=== PATIENT | male | born 1950 | race Two or more races ===

== ENCOUNTER 2020-04-13 19:39 | Inpatient (IN) | payer MEDICARE, OTHER ==
[~2020-04-13] VITALS: Ht 180.3 cm; Wt 138.3 kg
--- NOTE | 2020-04-13 20:17 | NUR ---
CALLED LAB FOR COVID SWAB.
--- NOTE | 2020-04-13 20:17 | NUR ---
SEATER GRINDER AT BEDSIDE
[2020-04-13 20:29] LABS: BASOPHILS # (AUTO) 0.1 /CMM (0.0-0.2); BASOPHILS % (AUTO) 0.3 % (0.0-2.0); HEMATOCRIT 26 % (39-51); HEMOGLOBIN 7.9 g/dL (13.5-17.5); LYMPHOCYTES # (AUTO) 0.3 /CMM (0.8-4.8); LYMPHOCYTES % (AUTO) 1.4 % (20.0-44.0); MEAN CORPUSCULAR HGB CONC 30 g/dl (31.0-36.0); MEAN CORPUSCULAR VOLUME 66 fL (80-96); MONOCYTES # (AUTO) 0.5 /CMM (0.1-1.30); MONOCYTES % (AUTO) 2.2 % (2.0-12.0); NEUTROPHILS # (AUTO) 23.2 /CMM (1.8-8.9); NEUTROPHILS % (AUTO) 96.1 % (43.0-81.0); PLATELET COUNT (AUTO) 351 /CMM (150-450); RED BLOOD CELL COUNT(AUTO) 3.93 MIL/uL (4.5-6.0); WHITE BLOOD COUNT (AUTO) 24.2 K/uL (4.3-11.0)
--- NOTE | 2020-04-13 20:30 | NUR ---
CODI FROM HOME TO ER BED 6. AAOX4. NOT IN RESP DISTRESS. BROUGHT IN FOR WEAKNESS AND FLU LIKE SYMPTOMS. PER PT, HE HAS BEEN FEELING WEAK TODAY AND DIFFICULT TO MOVE AROUND HE REPORTS THAT HE SLIPPED OF HIS TOILET. PT DENIED HITTING HIS HEAD. NO KO. PT IS ALSO COMPLAINING OF COUGH. WAS AT THE BESIDE FOR EVAL. ORDERS RECEIVED, NOTED AND CARRIED OUT.
--- NOTE | 2020-04-13 20:32 | NUR ---
ULTRASOUND AT BEDSIDE
[2020-04-13 20:49] LABS: ALANINE AMINOTRANSFERASE 14 U/L (12-78); ALBUMIN 3.4 g/dL (3.4-5.0); ALKALINE PHOSPHATASE 69 U/L (46-116); ASPARTATE AMINOTRANSFERASE 42 U/L (15-37); BILIRUBIN,DIRECT 0.3 mg/dL (0.0-0.2); BILIRUBIN,TOTAL 1.9 mg/dL (0.2-1.0); CALCIUM, SERUM 9.6 mg/dL (8.5-10.1); CARBON DIOXIDE 22 mmol/L (21-32); CHLORIDE 97 mmol/L (98-107); CREATININE 2.1 mg/dL (0.6-1.3); GLUCOSE 258 mg/dL (74-106); POTASSIUM 3.9 mmol/L (3.5-5.1); SODIUM SERUM 135 mmol/L (136-145); TOTAL PROTEIN, SERUM 7.9 g/dL (6.4-8.2); UREA NITROGEN, BLOOD 21 mg/dL (7-18)
--- NOTE | 2020-04-13 20:55 | NUR ---
pt to ct on james
--- NOTE | 2020-04-13 20:57 | NUR ---
calcium gluconate cancelled by . potassium 3.9
[2020-04-13] MEDS ORDERED: VANCOMYCIN 2 GM in IV D5W 250 ML IV ONE (21:00)
[2020-04-13] MEDS ORDERED: Calcium Gluconate 1GM/10ML 4.65 MEQ in IV D5W 50 ML IV ONE ×4 (21:00)
[2020-04-13] MEDS ORDERED: MEROPENEM 1 G VIAL IV ONE (21:00)
[2020-04-13] MEDS ORDERED: MEROPENEM 1,000 MG in IV NS 0.9% 100 ML IV ONE (21:00)
[2020-04-13] MEDS ORDERED: VANCOMYCIN 1 GM VIAL ONE (21:01)
--- NOTE | 2020-04-13 21:04 | NUR ---
BROUGHT BACK FROM CT
--- NOTE | 2020-04-13 21:11 | NUR ---
another ultrasound at bedside
[2020-04-13 21:19] LABS: BAND % (MANUAL) 16 % (0.0-5.0); LYMPHOCYTES % (MANUAL) 1 % (16-48); MONOCYTES % (MANUAL) 1 % (0-11.0); NEUTROPHILS % (MANUAL) 82 (42-76)
--- NOTE | 2020-04-13 21:24 | NUR ---
CALLED [facility] FOR CT READ
--- NOTE | 2020-04-13 21:59 | NUR ---
urine collected and sent to lab
[2020-04-13] MEDS ORDERED: IV NS 0.9% 1,000 ML IV ONE (22:00)
--- NOTE | 2020-04-13 22:16 | NUR ---
BED ASSIGNMENT 114-1
--- NOTE | 2020-04-13 22:20 | NUR ---
report given to kelsey rodriguez for ivan
[2020-04-13] MEDS ORDERED: ONDANSETRON HCL/PF 4 MG/2 ML VIAL IVP PRN (22:30)
[2020-04-13] MEDS ORDERED: DEXTROSE 50%-WATER 50 ML DISP.SYRIN IV PRN (22:30)
[2020-04-13] MEDS ORDERED: MAGNESIUM HYDROXIDE 30 ML UDC PO PRN (22:30)
[2020-04-13] MEDS ORDERED: MAG HYDROX/AL HYDROX/SIMETH 30 ML UDC PO PRN (22:30)
[2020-04-13] MEDS ORDERED: ZOLPIDEM TARTRATE 5 MG TABLET PO PRN (22:30)
[2020-04-13] MEDS ORDERED: Z GUARD REMEDY 2 OZ OINT TP PRN (22:30)
--- NOTE | 2020-04-13 22:35 | NUR ---
pt transported to unit on gurney with emt and rn at beside w/ acls protocol. nad noted during transport.
[2020-04-13 22:52] LABS: BILIRUBIN,URINE SMALL (NEGATIVE); COLOR,URINE YELLOW (YELLOW); LEUKOCYTE ESTERASE ,URINE NEGATIVE (NEGATIVE); NITRITE, URINE NEGATIVE (NEGATIVE); PROTEIN,URINE 100 mg/dl (NEGATIVE); UGLUCOSE NEGATIVE (NEGATIVE); UROBILINOGEN,URINE 0.2 EU/dL (0.2)
[2020-04-13 22:58] LABS: BACTERIA,URINE Few /HPF (None Seen); HYALINE CASTS, URINE Moderate /LPF (None Seen); MUCUS,URINE Few /LPF (None Seen); SQUAMOUS EPITHELIAL CELL,UR Few /HPF (None Seen); URINE AMORPHOUS URATE Few /HPF (None Seen); WBC,URINE 0-2 /HPF (0-3)
[2020-04-13] MEDS ORDERED: VANCOMYCIN 2 GM in IV D5W 500 ML IV ONE (22:58)
[2020-04-13 23:10] VITALS: BP 121/73
--- NOTE | 2020-04-13 23:10 | NUR ---
CATERING SALES MANAGER ADMISSION NOTES, RECEIVED 70 YO MALE ADMITTED FROM ER VIA STRETCHER IN COMPANY OF 2 NURSES, UNDER CAMERON HERRON MD MEDICAL SERVICES, WITH ADMITTING DX CELLULITIS, A/O X3 ABLE TO VERBALIZE NEEDS AND CONCERNS, ATTACHED TO TELE MONITOR AND PATIENT NSR IN TELE MONITOR, WITH HR IN 80S, O2 90S AND TITRATE UP TO 4LPM VIA NC WITH 02 95%, VS UPON ADMISSION 121/73, 80, 24, 103.0, COOLING MEASURES PROVIDED, WILL ADM TYLENOL, PATIENT NOTED WITH REDNESS PERINEAL AREA, AND LLL CELLULITIS, RLL NON PITTING EDEMA, PATIENT STILL INFUSING NS FROM ER, WILL ADMINISTER MEDICATIONS ORDERED, BED LOCKED AND IN LOW POSITION, CALL LIGHT W/I REACH, ALL NEEDS PROVIDED, WILL CONTINUE TO MONITOR CLOSELY.
[2020-04-13] MEDS: ACETAMINOPHEN 325 MG TABLET PO PRN (23:23)
--- NOTE | 2020-04-13 23:30 | NUR ---
RN NOTE, VANCOMYCIN ADMINISTERED IN ER.
[2020-04-14] VITALS: BP 115/54
[2020-04-14] MEDS ORDERED: PIPERACILLIN /TAZOBACTAM 2.25 G VIAL IV ONE ×2 (00:04→05:18)
[2020-04-14] MEDS: ZOSYN IVPB 2.25 G in IV D5W 50ml IV SCH ×2 (00:28→05:24)
--- NOTE | 2020-04-14 03:20 | NUR ---
RN NOTES, PATIENT COMPLAINING OF TROUBLE BREATHING/SOB, O2 WNL ON NC 4LPM, AND NOTED CONGESTED, INFORMED CAMERON CURATOR [employer] HISTORY M[employer]UM, AND REPLIED WITH LASIX 20MG IV X1, NOTED AND CARRIED OUT, WILL ADMINISTER ORDERED.
[2020-04-14] MEDS ORDERED: FUROSEMIDE 40 MG/4 ML VIAL IV ONE (03:30)
[2020-04-14] MEDS: IV NS 0.9% 1,000 ML IV PRN (03:41)
[2020-04-14] MEDS: ACETAMINOPHEN 325 MG TABLET PO PRN ×3 (05:35→20:52)
[2020-04-14 05:54] LABS: BASOPHILS % (AUTO) 0.3 % (0.0-2.0); HEMATOCRIT 26 % (39-51); HEMOGLOBIN 7.9 g/dL (13.5-17.5); LYMPHOCYTES # (AUTO) 0.3 /CMM (0.8-4.8); LYMPHOCYTES % (AUTO) 1.4 % (20.0-44.0); MEAN CORPUSCULAR HGB CONC 30 g/dl (31.0-36.0); MEAN CORPUSCULAR VOLUME 66 fL (80-96); MONOCYTES # (AUTO) 0.5 /CMM (0.1-1.30); MONOCYTES % (AUTO) 2.7 % (2.0-12.0); NEUTROPHILS % (AUTO) 95.6 % (43.0-81.0); PLATELET COUNT (AUTO) 332 /CMM (150-450); WHITE BLOOD COUNT (AUTO) 18.8 K/uL (4.3-11.0)
[2020-04-14 05:58] LABS: CALCIUM, SERUM 8.9 mg/dL (8.5-10.1); CREATININE 1.6 mg/dL (0.6-1.3); MAGNESIUM 1.6 mg/dL (1.8-2.4); PHOSPHORUS 3.5 mg/dL (2.5-4.9); POTASSIUM 3.7 mmol/L (3.5-5.1)
--- NOTE | 2020-04-14 06:50 | NUR ---
STITCHER TAPE CONTROLLED MACHINE NOTES, PATIENT IN BED, SLEEPING AT THIS TIME MORE COMFORTABLE AFTER LASIX ADMINISTRATION, RESTING WITH NO DISTRESS NOTED, A/O X3 ABLE TO VERBALIZE NEEDS AND CONCERNS, CONTINUE NSR IN TELE MONITOR WITH HR 90S, O2 4LPM VIA NC WITH 02 >94%, TYLENOL ADMINISTERED 2X DURING MY SHIFT FOR HIGH BODY TEMP, LAST TEMP 99.9 AT THIS TIME, PIV LINE AND RIGHT HAND PATENT AND INTACT ON NS 0.9% AT 75ML/HR, BED LOCKED AND IN LOW POSITION, CALL LIGHT W/I REACH, ALL NEEDS PROVIDED, WILL ENDORSE CONTINUITY OF CARE TO ONCOMING NURSE.
--- NOTE | 2020-04-14 07:10 | NUR ---
RN OPENING NOTE PATIENT RECEIVED IN BED RESTING IN SEMI-FOWLERS POSITION. PATIENT IS ON O2 THERAPY VIA NC AT 4 LPM SATTING ABOVE 95% WITH NO COMPLAINTS OF SOB OR RESPIRATORY DISTRESS NOTED. PATIENT IS TOLERATING O2 THERAPY WELL. DENIES PAIN AT THE MOMENT. PATIENT LEFT HAND 20 G PATENT AND INTACT CURRENTLY RUNNING NS 0.9% AT 75 ML/HR. SAFETY PRECAUTIONS IMPLEMENTED, BED LOCKED IN LOWEST POSITION, SIDE RAILS UP X2, CALL LIGHT WITHIN REACH. WILL CONTINUE TO MONITOR AND PROVIDE CARE THROUGHOUT SHIFT.
[2020-04-14] MEDS: BLOOD SUGAR DIAGNOSTIC 1 EACH STRIP VI SCH ×4 (08:28→21:19)
[2020-04-14] MEDS: PIPERACILLIN /TAZOBACTAM 3.375 G in IV D5W 100 ML IV SCH ×2 (10:04→17:26)
--- NOTE | 2020-04-14 10:55 | NUR ---
WOUND CARE CONSULT: PT PRESENTS WITH REDNESS AND EDEMA TO BILATERAL LOWER LEGS WITH SEVERE SWELLING TO LEFT LOWER LEG, PRESENT ON ADMISSION. RECOMMEND DPM CONSULT. DR BOURGEOIS NOTIFIED OF CONSULT REQUEST. PT REFUSED TO TURN FOR FULL SKIN ASSESSMENT. PT COUGHING AND STATES HAS CHRONIC COUGH. PT IS INCONTINENT OF URINE AT TIMES AND HAS DIFFICULTY USING URINAL. SOME REDNESS NOTED TO RT GROIN FOLD. RECOMMENDATIONS MADE FOR SKIN PROTECTION. DISCUSSED WITH NURSING STAFF. IN AGREEMENT WITH PLAN OF CARE.
[2020-04-14] MEDS ORDERED: Magnesium 1GM/D5W 100ML PREMIX 100 ML IV SCH (12:30)
[2020-04-14 12:51] LABS: CREATININE, URINE 89.3 MG/DL (30.0-125.0); URINE TOTAL PROTEIN 43.5 mg/dL (0-11.9)
[2020-04-14 13:17] LABS: BILIRUBIN,URINE NEGATIVE (NEGATIVE); COLOR,URINE YELLOW (YELLOW); LEUKOCYTE ESTERASE ,URINE NEGATIVE (NEGATIVE); NITRITE, URINE NEGATIVE (NEGATIVE); PROTEIN,URINE TRACE mg/dl (NEGATIVE); UGLUCOSE NEGATIVE (NEGATIVE); UROBILINOGEN,URINE 0.2 EU/dL (0.2)
[2020-04-14 13:30] LABS: BACTERIA,URINE Rare /HPF (None Seen); SQUAMOUS EPITHELIAL CELL,UR Rare /HPF (None Seen); WBC,URINE 0-2 /HPF (0-3)
[2020-04-14 14:21] LABS: EOSINOPHIL,URINE None Seen
[2020-04-14] MEDS ORDERED: VITAMINS A AND D 56.7 GM TUBE TP PRN (14:30)
[2020-04-14] MEDS: CLOTRIMAZOLE 1% 15 GM TUBE TP SCH (17:23)
--- NOTE | 2020-04-14 18:57 | NUR ---
RN CLOSING NOTE PATIENT IN BED RESTING IN SEMI-FOWLERS POSITION. PATIENT IS ON O2 THERAPY VIA NC AT 4 LPM SATTING ABOVE 95% WITH NO COMPLAINTS OF SOB OR RESPIRATORY DISTRESS NOTED. PATIENT IS TOLERATING O2 THERAPY WELL. DENIES PAIN AT THE MOMENT. PATIENT LEFT HAND 20 G PATENT AND INTACT CURRENTLY RUNNING NS 0.9% AT 75 ML/HR. SAFETY PRECAUTIONS IMPLEMENTED, BED LOCKED IN LOWEST POSITION, SIDE RAILS UP X2, CALL LIGHT WITHIN REACH. WILL ENDORSE CONTINUATION OF CARE TO UPCOMING SHIFT.
--- NOTE | 2020-04-14 19:30 | NUR ---
BARREL BURNER OPENING NOTE PATIENT IN BED , A/O X3, ABLE TO VERBALIZE NEEDS AN CONCERNS, ON O2 THERAPY VIA NC AT 4 L VIA NC, WIT O2 >95%, NO SOB/RESPIRATORY DISTRESS NOTED, NSR IN TELE MONITOR, LEFT HAND 20 G PATENT AND INTACT, INFUSING NS 0.9% AT 75 ML/HR, ALL SAFETY PRECAUTIONS IMPLEMENTED, BED LOCKED IN LOWEST POSITION, SIDE RAILS UP X2, CALL LIGHT WITHIN REACH, WILL CONTINUE TO MONITOR CLOSELY.
[2020-04-14 20:00] VITALS: BP 149/70
[2020-04-14] MEDS: VANCOMYCIN 1.5 GM in IV D5W 500 ML IV SCH (21:02)
[2020-04-14] MEDS: *INSULIN REGULAR(HUMULIN R)HUM 100 UNIT/ML VIAL SQ PRN (21:21)
[2020-04-15] MEDS: PIPERACILLIN /TAZOBACTAM 3.375 G in IV D5W 100 ML IV SCH ×3 (02:52→17:56)
[2020-04-15 04:00] VITALS: BP 131/63
[2020-04-15 06:32] LABS: BASOPHILS % (AUTO) 0.2 % (0.0-2.0); HEMATOCRIT 24 % (39-51); HEMOGLOBIN 7.2 g/dL (13.5-17.5); LYMPHOCYTES # (AUTO) 0.5 /CMM (0.8-4.8); LYMPHOCYTES % (AUTO) 3.9 % (20.0-44.0); MEAN CORPUSCULAR HGB CONC 30 g/dl (31.0-36.0); MEAN CORPUSCULAR VOLUME 65 fL (80-96); MONOCYTES # (AUTO) 0.6 /CMM (0.1-1.30); MONOCYTES % (AUTO) 4.6 % (2.0-12.0); NEUTROPHILS # (AUTO) 12.6 /CMM (1.8-8.9); NEUTROPHILS % (AUTO) 91.3 % (43.0-81.0); PLATELET COUNT (AUTO) 274 /CMM (150-450); RED BLOOD CELL COUNT(AUTO) 3.65 MIL/uL (4.5-6.0); WHITE BLOOD COUNT (AUTO) 13.8 K/uL (4.3-11.0)
[2020-04-15 06:40] LABS: ALBUMIN 2.5 g/dL (3.4-5.0); BILIRUBIN,TOTAL 1.3 mg/dL (0.2-1.0); CALCIUM, SERUM 8.4 mg/dL (8.5-10.1); CREATININE 1.3 mg/dL (0.6-1.3); POTASSIUM 3.3 mmol/L (3.5-5.1); TOTAL PROTEIN, SERUM 6.9 g/dL (6.4-8.2)
--- NOTE | 2020-04-15 06:51 | NUR ---
SCREEDMAN CLOSING NOTE PATIENT IN BED, AWAKE A/O X3, ABLE TO VERBALIZE NEEDS AN CONCERNS, ON O2 THERAPY VIA NC AT 4 L VIA NC, WITH O2 >95%, NO SOB/RESPIRATORY DISTRESS NOTED, NO SIGNIFICANT CHANGE IN CONDITION DURING THE NIGHT, ALL SAFETY PRECAUTIONS IMPLEMENTED, BED LOCKED IN LOWEST POSITION, SIDE RAILS UP X2, CALL LIGHT WITHIN REACH, WILL ENDORSE CONTINUITY OF CARE TO ONCOMING NURSE.
[2020-04-15 08:00] VITALS: BP 133/50
--- NOTE | 2020-04-15 08:00 | NUR ---
PT RECEIVED ON 4L NASAL CANNULA, BUT OBSERVED WITH CANNULA AROUND NECK; 02 SAT READING 92% ON ROOM AIR, NO DISTRESS. CANNULA REPLACED AND DECREASED TO 3L. PT ALERT AND ORIENTED X 4. PATIENT HAS NS RUNNING IN RIGHT HAND 22G, NO SIGNS OF INFECTION OR INFILTRATION. JARAMILLO CATH DRAINING YELLOW URINE, ALL SAFETY MEASURES IN PLACE. WILL CONTINUE TO MONITOR
[2020-04-15] MEDS: BLOOD SUGAR DIAGNOSTIC 1 EACH STRIP VI SCH ×4 (08:03→22:06)
[2020-04-15] MEDS: CLOTRIMAZOLE 1% 15 GM TUBE TP SCH ×2 (08:04→17:38)
[2020-04-15] MEDS: *INSULIN REGULAR(HUMULIN R)HUM 100 UNIT/ML VIAL SQ PRN ×2 (08:05→23:38)
[2020-04-15 08:58] LABS: LYMPHOCYTES % (MANUAL) 3 % (16-48); MONOCYTES % (MANUAL) 4 % (0-11.0); NEUTROPHILS % (MANUAL) 93 (42-76)
[2020-04-15] MEDS ORDERED: POTASSIUM CHLORIDE 20 MEQ TAB.PRT.SR PO ONE (09:45)
[2020-04-15] MEDS ORDERED: TAMS-12 PO (10:28)
[2020-04-15] MEDS ORDERED: AMLO10TA4 PO (10:28)
[2020-04-15] MEDS ORDERED: LOSA50TA3 PO (10:28)
[2020-04-15] MEDS ORDERED: OMEP20TA20 PO (10:28)
[2020-04-15] MEDS ORDERED: METO50TA16 PO (10:28)
[2020-04-15] MEDS ORDERED: FURO-144 PO (10:28)
[2020-04-15] MEDS ORDERED: METF-440 PO (10:28)
[2020-04-15] MEDS ORDERED: SIMV40TA2 PO (10:28)
[2020-04-15 12:00] VITALS: BP 143/67
[2020-04-15] MEDS: INSULIN REGULAR, HUMAN 100 UNIT/ML 3 ML VIAL SQ PRN ×2 (12:11→17:42)
[2020-04-15 16:00] VITALS: BP 137/64
--- NOTE | 2020-04-15 19:00 | NUR ---
PATIENT REMAINS IN BED, NOW ON ROOM AIR O2 SAT 91-92%, DUE TO NASAL CANNULA DISPLACING. ENDORSED TO ONCOMING RN TO RECHECK O2 SATS AND NEED FOR SUPPLEMENTAL O2. PATIENT IV SITES REMAIN INTACT AND FLUSHED WELL, NO SIGNS OF INFECTION. PATIENT RUNNING NS AT 75 ML/HR. PATIENT JARAMILLO IN PLACE DRAINING YELLOW URINE 500 ML. NO BM THIS SHIFT. SCD APPLIED TO RIGHT LOWER LEG, ANTICOAGULANTS TO BE HELD DUE TO DECREASING HGB PER DO KERZUMA. ALL SAFETY MEASURES IN PLACE. REPORT GIVEN TO ONCOMING RN FOR RUBI
[2020-04-15 20:00] VITALS: BP 144/64
--- NOTE | 2020-04-15 20:00 | NUR ---
RN NOTE RECEIVED PT IN BED A,A,O X4, PT IS ON 3L O2 VIA NC SATING 94%, PT HAS UNLABORED BREATHING, SAFETY MEASURES IN PLACE
[2020-04-15] MEDS: VANCOMYCIN 1.5 GM in IV D5W 500 ML IV SCH (22:06)
[2020-04-16] VITALS (9 sets, daily range): BP systolic 111–152; BP diastolic 59–79
[2020-04-16] MEDS: IV NS 0.9% 1,000 ML IV PRN ×2 (00:33→18:24)
[2020-04-16] MEDS: PIPERACILLIN /TAZOBACTAM 3.375 G in IV D5W 100 ML IV SCH ×3 (01:57→18:25)
[2020-04-16 06:41] LABS: BASOPHILS % (AUTO) 0.4 % (0.0-2.0); EOSINOPHILS % (AUTO) 1.1 % (0.0-6.0); HEMATOCRIT 23 % (39-51); LYMPHOCYTES # (AUTO) 0.9 /CMM (0.8-4.8); LYMPHOCYTES % (AUTO) 8.1 % (20.0-44.0); MEAN CORPUSCULAR HGB CONC 30 g/dl (31.0-36.0); MEAN CORPUSCULAR VOLUME 64 fL (80-96); MONOCYTES % (AUTO) 8.8 % (2.0-12.0); NEUTROPHILS # (AUTO) 9.2 /CMM (1.8-8.9); NEUTROPHILS % (AUTO) 81.6 % (43.0-81.0); PLATELET COUNT (AUTO) 282 /CMM (150-450); RED BLOOD CELL COUNT(AUTO) 3.49 MIL/uL (4.5-6.0); WHITE BLOOD COUNT (AUTO) 11.3 K/uL (4.3-11.0)
[2020-04-16 06:51] LABS: HEMOGLOBIN 6.8 g/dL (13.5-17.5)
[2020-04-16 06:52] LABS: CALCIUM, SERUM 8.1 mg/dL (8.5-10.1); CREATININE 1.1 mg/dL (0.6-1.3); MAGNESIUM 2.5 mg/dL (1.8-2.4); POTASSIUM 3.4 mmol/L (3.5-5.1)
--- NOTE | 2020-04-16 06:53 | NUR ---
RECEIVED CRITICAL LAB HGB 6.8, INFORMED ABDIAS MCKEON.
--- NOTE | 2020-04-16 07:25 | NUR ---
RN NOTE PT REMAINED STABLE DURING MY SHIFT REPORT GIVEN TO INCOMING NURSE WITH PLAN OF CARE SHIFT FOR RUBI.
--- NOTE | 2020-04-16 07:30 | NUR ---
FANCY WIRE DRAWER OPENING NOTES Patient is alert and oriented with no s/s of respiratory depression. No c/o pain or disocmfort. On 3 liters 02 via n/c with 02 sat of 97%. Patient teaching done regarding safety and fall precaution. Patient noted with 22 gauze to right hand with no s/s of infection and patent. Rodriguez cath intact and hanging to gravity with clear yellow urine. Head of the bed kept elevated. Will continue to monitor. call light with in reach.
[2020-04-16] MEDS: INSULIN REGULAR, HUMAN 100 UNIT/ML 3 ML VIAL SQ PRN ×2 (07:54→18:05)
[2020-04-16] MEDS: BLOOD SUGAR DIAGNOSTIC 1 EACH STRIP VI SCH ×4 (07:55→21:24)
[2020-04-16 08:07] LABS: PTH, INTACT 100 pg/mL (15-65)
[2020-04-16] MEDS: CLOTRIMAZOLE 1% 15 GM TUBE TP SCH ×2 (08:59→16:18)
[2020-04-16 09:37] LABS: BAND % (MANUAL) 1 % (0.0-5.0); EOSINOPHILS % (MANUAL) 1 % (0-4); LYMPHOCYTES % (MANUAL) 6 % (16-48); MONOCYTES % (MANUAL) 4 % (0-11.0); NEUTROPHILS % (MANUAL) 88 (42-76)
[2020-04-16] MEDS ORDERED: POTASSIUM CHLORIDE 20 MEQ TAB.PRT.SR PO ONE (10:00)
[2020-04-16] MEDS ORDERED: NEUTRA PHOS 1 POWD.PACKET PO ONE (11:00)
[2020-04-16 11:07] LABS: *SPE A/G RATIO 0.6 (0.7-1.7); *SPE ALBUMIN 2.4 g/dL (2.9-4.4); *SPE ALPHA-1-GLOBULIN 0.5 g/dL (0.0-0.4); *SPE ALPHA-2-GLOBULIN 1.2 g/dL (0.4-1.0); *SPE GLOBULIN, TOTAL 3.7 g/dL (2.2-3.9); *SPE M-SPIKE Not Observed g/dL (Not Observed); *SPEGAMMA GLOBULIN 1.1 g/dL (0.4-1.8)
--- NOTE | 2020-04-16 14:00 | NUR ---
Patient was given 3 units of regular insulin ac lunch for sugar of 181 mg/dl
[2020-04-16] MEDS: HYDROCODONE/APAP 5/325MG TABLET PO PRN (14:26)
[2020-04-16] MEDS: VANCOMYCIN 1.5 GM in IV D5W 500 ML IV SCH (16:18)
--- NOTE | 2020-04-16 18:51 | NUR ---
ASSISTED LIVING HOUSEKEEPER CLOSING NOTES Patient is alert and oriented with no s/s of respiratory depression. No c/o pain or discomfort. On 3 liters 02 via n/c with 02 sat of 98%. Patient noted with 22 gauze to right hand with no s/s of infection and patent.Midline inserted during shift 18 gauze to right ac. Patent and no s/s of bleeding. Patient noted with non productive cough, lung sounds cta. Informed MD and received order for Robitussin dm 5 ml po q4h prn for cough. Rodriguez cath intact and hanging to gravity with clear yellow urine, noted with 800 cc of urine during shift. Head of the bed kept elevated. Will endorse to next shift for RUBI. call light with in reach.
[2020-04-16] MEDS: GUAIFENESIN/D-METHORPHAN HB 5 ML UDC PO PRN ×2 (19:09→23:16)
--- NOTE | 2020-04-16 19:24 | NUR ---
RN NOTE RECEIVED PT ALERT AND ORIENTED X 3 IN BED IN HIGH ZABALA'S POSITION. PT ON 3L OF O2. NO SIGNS OF DISTRESS. DENIES PAIN OR DISCOMFORT AT THIS TIME. RIGHT RIGHT HAND 22G IV AND RIGHT AC MID LINE PATENT AND INTACT WITHOUT COMPLICATIONS NOTED AT SITES. WITH ZOSYN RUNNING ORDERED AND NS @ 75ML/HOUR RUNNING ORDERED, PLAN OF CARE DISCUSSED, PT VERBALIZED UNDERSTANDING. PT IS PENDING 1PRBC INFUSION. CONSENT NOTED TO BE SIGNED IN CHART, PENDING COLLECTION OF STOOL FOR OCCULT BLOOD. SAFETY MEASURES IN PLACE PER PROTOCOL, BED LOCKED AND IN LOW POSITION, SIDE RAILS UP X 2, CALL LIGHT WITHIN REACH, WILL MONITOR PATIENT AND CARRY OUT ACTIVE MD ORDERS.
[2020-04-16] MEDS: *INSULIN REGULAR(HUMULIN R)HUM 100 UNIT/ML VIAL SQ PRN (21:11)
--- NOTE | 2020-04-16 23:26 | NUR ---
RN NOTE BLOOD TRANSFUSION STARTED, WILL MONITOR PATIENT.
[2020-04-17] VITALS (10 sets, daily range): BP systolic 114–163; BP diastolic 64–88
[2020-04-17] MEDS: HYDROCODONE/APAP 5/325MG TABLET PO PRN ×3 (00:10→23:42)
--- NOTE | 2020-04-17 02:00 | NUR ---
RN NOTE PT OFFERED BED BATH AND LINEN CHANGE BUT PT REFUSED STATING THAT LAST TIME IT MADE HIM FEEL "TIRED AND FATIGUED." REPOSITIONED PT FOR COMFORT. NO FURTHER NEEDS AT THIS TIME.
--- NOTE | 2020-04-17 02:26 | NUR ---
RN NOTE BLOOD TRANSFUSION COMPLETED, NO ADVERSE REACTIONS NOTED, VITAL SIGNS STABLE, PT DENIES DISCOMFORT OR SHORTNESS OF BREATH, WILL CONTINUE TO MONITOR PATIENT
[2020-04-17] MEDS: PIPERACILLIN /TAZOBACTAM 3.375 G in IV D5W 100 ML IV SCH ×3 (02:31→17:50)
[2020-04-17 06:21] LABS: BASOPHILS # (AUTO) 0.1 /CMM (0.0-0.2); EOSINOPHILS % (AUTO) 4.1 % (0.0-6.0); HEMATOCRIT 27 % (39-51); HEMOGLOBIN 8.1 g/dL (13.5-17.5); LYMPHOCYTES # (AUTO) 1.1 /CMM (0.8-4.8); LYMPHOCYTES % (AUTO) 9.7 % (20.0-44.0); MEAN CORPUSCULAR HGB CONC 30 g/dl (31.0-36.0); MEAN CORPUSCULAR VOLUME 67 fL (80-96); MONOCYTES # (AUTO) 1.1 /CMM (0.1-1.30); MONOCYTES % (AUTO) 9.6 % (2.0-12.0); NEUTROPHILS % (AUTO) 75.6 % (43.0-81.0); PLATELET COUNT (AUTO) 309 /CMM (150-450); RED BLOOD CELL COUNT(AUTO) 3.97 MIL/uL (4.5-6.0); WHITE BLOOD COUNT (AUTO) 11.9 K/uL (4.3-11.0)
--- NOTE | 2020-04-17 06:31 | NUR ---
RN NOTE NO ACUTE CHANGES OBSERVED OVERNIGHT. PT REMAINS ALERT AND ORIENTED X 3 SITTING AT THE EDGE OF THE BED. PT ON 3L OF O2. NO SIGNS OF DISTRESS. DENIES PAIN OR DISCOMFORT AT THIS TIME. RIGHT RIGHT HAND 22G IV AND RIGHT AC MID LINE PATENT AND INTACT. FLUSHED WITHOUT COMPLICATIONS NOTED AT SITES. WITH NS @ 75ML/HOUR RUNNING ORDERED, JARAMILLO CATHETER PATENT AND IN PLACE DRAINING URINE VIA GRAVITY. PT IS S/P BLOOD TRANSFUSION WITHOUT ADVERSE REACTIONS NOTED, PENDING COLLECTION OF STOOL FOR OCCULT BLOOD. SAFETY MEASURES IN PLACE PER PROTOCOL, BED LOCKED AND IN LOW POSITION, SIDE RAILS UP X 2, CALL LIGHT WITHIN REACH, WILL ENDORSE TO MORNING RN FOR URBI.
[2020-04-17 06:45] LABS: CALCIUM, SERUM 8.5 mg/dL (8.5-10.1); MAGNESIUM 2.3 mg/dL (1.8-2.4); PHOSPHORUS 2.1 mg/dL (2.5-4.9); POTASSIUM 3.6 mmol/L (3.5-5.1)
[2020-04-17] MEDS: BLOOD SUGAR DIAGNOSTIC 1 EACH STRIP VI SCH ×4 (07:47→21:59)
[2020-04-17] MEDS: INSULIN REGULAR, HUMAN 100 UNIT/ML 3 ML VIAL SQ PRN ×3 (07:49→17:44)
[2020-04-17 09:23] LABS: EOSINOPHILS % (MANUAL) 3 % (0-4); LYMPHOCYTES % (MANUAL) 10 % (16-48); MONOCYTES % (MANUAL) 11 % (0-11.0); NEUTROPHILS % (MANUAL) 76 (42-76)
[2020-04-17] MEDS: VANCOMYCIN 1.5 GM in IV D5W 500 ML IV SCH (09:44)
[2020-04-17] MEDS: CLOTRIMAZOLE 1% 15 GM TUBE TP SCH ×2 (09:58→16:47)
--- NOTE | 2020-04-17 10:45 | NUR ---
m/s transit mechanic: notes p.t. tx done at bedside. see p.t. notes.
--- NOTE | 2020-04-17 11:49 | NUR ---
m/s monotype setter: notes c/o 08/29 leg/foot pain, medicated with norco 1 tab po as ordered. instructed to call for assistance. will continue to monitor.
[2020-04-17] MEDS ORDERED: K PHOS NEUTRAL 250 MG TABLET PO ONE (12:00)
[2020-04-17] MEDS: IV NS 0.9% 1,000 ML IV PRN (12:08)
--- NOTE | 2020-04-17 14:10 | NUR ---
m/s geriatrics physician: md visit seen by dr. fairchild with orders. orders acknowledged.
--- NOTE | 2020-04-17 19:00 | NUR ---
RN NOTE RECEIVED PATIENT IN BED, ON SEMI ZABALA'S, AO X3-4, IN NO S/SX OF ACUTE DISTRESS AT THIS TIME. PATIENT'S BREATHING IS EVEN AND UNLABORED. PATIENT IS ON 3 L OF OXYGEN VIA NC, TOLERATING WELL, SATURATION AT 96%, HR IS 71. NOTED IV SITE AT R HAND 22G, AND RAC MIDLINE, PATENT AND FLUSHING WELL, NO S/S OF INFECTION. JARAMILLO CATH CONNECTED TO URINE BAG IN PLACE, DRAINING TO A CLEAR, YELLOW OUTPUT. SAFETY MEASURES IMPLEMENTED. PATIENT BED ALARM IS ON. HEAD OF BED ELEVATED. BED IS LOCKED, IN LOWEST POSITION AND SIDE RAILS UP. CALL LIGHT WITHIN REACH OF THE PATIENT. WILL CONTINUE TO MONITOR AND REASSESS FOR ANY CHANGES.
--- NOTE | 2020-04-17 19:20 | NUR ---
m/s foreign food cook specialty: notes report given to wyatt (rn) for continuity of care.
[2020-04-17] MEDS: *INSULIN REGULAR(HUMULIN R)HUM 100 UNIT/ML VIAL SQ PRN (22:02)
[2020-04-17] MEDS: GUAIFENESIN/D-METHORPHAN HB 5 ML UDC PO PRN (22:37)
[2020-04-18] VITALS: BP 163/70
[2020-04-18] MEDS: PIPERACILLIN /TAZOBACTAM 3.375 G in IV D5W 100 ML IV SCH ×4 (01:04→18:37)
[2020-04-18] MEDS: IV NS 0.9% 1,000 ML IV PRN (01:50)
[2020-04-18] MEDS: VANCOMYCIN 1.5 GM in IV D5W 500 ML IV SCH ×2 (03:30→21:50)
[2020-04-18] MEDS: HYDROCODONE/APAP 5/325MG TABLET PO PRN ×2 (03:59→14:32)
[2020-04-18 04:00] VITALS: BP 162/69
[2020-04-18 05:57] LABS: BASOPHILS # (AUTO) 0.1 /CMM (0.0-0.2); BASOPHILS % (AUTO) 0.8 % (0.0-2.0); EOSINOPHILS % (AUTO) 4.8 % (0.0-6.0); HEMATOCRIT 25 % (39-51); HEMOGLOBIN 7.5 g/dL (13.5-17.5); LYMPHOCYTES # (AUTO) 1.5 /CMM (0.8-4.8); MEAN CORPUSCULAR HGB CONC 30 g/dl (31.0-36.0); MEAN CORPUSCULAR VOLUME 67 fL (80-96); MONOCYTES # (AUTO) 1.3 /CMM (0.1-1.30); MONOCYTES % (AUTO) 10.4 % (2.0-12.0); PLATELET COUNT (AUTO) 340 /CMM (150-450); RED BLOOD CELL COUNT(AUTO) 3.69 MIL/uL (4.5-6.0); WHITE BLOOD COUNT (AUTO) 12.5 K/uL (4.3-11.0)
[2020-04-18 06:50] LABS: CALCIUM, SERUM 8.3 mg/dL (8.5-10.1); MAGNESIUM 2.4 mg/dL (1.8-2.4); PHOSPHORUS 2.1 mg/dL (2.5-4.9); POTASSIUM 3.5 mmol/L (3.5-5.1)
--- NOTE | 2020-04-18 07:10 | NUR ---
RN OPENING NOTES RECEIVED PT IN BED, A/O X3-4. ON 3L O2 VIA NC, SATURATION AT 91%. NO SON OR ANY SIGNS OF RESPIRATORY DISTRESS AT THIS TIME. IV LINES AT R HAND #22, AND RAC MIDLINE BOTH INTACT, PATENT AND FLUSHED. JARAMILLO CATH CONNECTED TO URINE BAG IN PLACE, DRAINING TO A CLEAR YELLOW OUTPUT. SAFETY MEASURES IMPLEMENTED. CALL LIGHT WITHIN REACH. BED LOCKED AND IN LOWEST POSITION WITH SIDE RAILS UP X2. BED ALARM ON. HOB ELEVATED. WILL CONTINUE TO MONITOR.
[2020-04-18] MEDS: BLOOD SUGAR DIAGNOSTIC 1 EACH STRIP VI SCH ×4 (07:30→21:27)
[2020-04-18 07:43] LABS: BAND % (MANUAL) 1 % (0.0-5.0); EOSINOPHILS % (MANUAL) 8 % (0-4); LYMPHOCYTES % (MANUAL) 11 % (16-48); MONOCYTES % (MANUAL) 5 % (0-11.0); MYELOCYTES % 2 % (0-0); NEUTROPHILS % (MANUAL) 73 (42-76)
[2020-04-18 08:00] VITALS: BP 166/74
[2020-04-18] MEDS: CLOTRIMAZOLE 1% 15 GM TUBE TP SCH ×2 (09:14→16:34)
[2020-04-18] MEDS: INSULIN REGULAR, HUMAN 100 UNIT/ML 3 ML VIAL SQ PRN ×3 (09:17→18:48)
[2020-04-18] MEDS: ACETAMINOPHEN 325 MG TABLET PO PRN (09:25)
[2020-04-18] MEDS ORDERED: K PHOS NEUTRAL 250 MG TABLET PO ONE (15:30)
[2020-04-18 16:00] VITALS: BP 157/60
[2020-04-18] MEDS ORDERED: LOSARTAN POTASSIUM 50 MG TABLET PO SCH (17:00)
[2020-04-18] MEDS ORDERED: FUROSEMIDE 40 MG TABLET PO SCH (17:00)
[2020-04-18] MEDS ORDERED: METOPROLOL TARTRATE 50 MG TABLET PO SCH (17:00)
[2020-04-18] MEDS ORDERED: PANTOPRAZOLE 40 MG TABLET.DR PO SCH (17:00)
[2020-04-18] MEDS ORDERED: METFORMIN 500 MG TABLET PO SCH (17:00)
--- NOTE | 2020-04-18 19:14 | NUR ---
RN CLOSING NOTES PT FOR DC. REPORT GIVEN TO CL[facility] GILL OF [facility]. DISCHARGE INSTRUCTIONS GIVEN TO PT. AWAITS [employer]. WILL ENDORSE TO NIGHT NURSE FOR RUBI
--- NOTE | 2020-04-18 19:20 | NUR ---
PT RECEIVED IN BED. AOX4, DENIES PAIN AND DISCOMFORT. NO S/S OF ACUTE DISTRESS. ENCOURAGED TO CALL FOR ASSIST. CALL LIGHT WITHIN REACH
[2020-04-18 20:00] VITALS: BP 112/70
--- NOTE | 2020-04-18 20:15 | NUR ---
RN NOTES FOLLOW UP CALL MADE TO CM REGARDING TRANSPORTATION; CALLED [facility] ; WILL CALL US BACK [phone] ROSA, FROM [facility] CALLED BACK. AMBULANCE SERVICES EXECUTIVE WILL BE AROUND 2300. PRIMARY RNMAYELA MADE AWARE.
[2020-04-18] MEDS: *INSULIN REGULAR(HUMULIN R)HUM 100 UNIT/ML VIAL SQ PRN (21:35)
[2020-04-18] MEDS ORDERED: SIMVASTATIN 20 MG TABLET PO SCH (22:00)
[2020-04-18] MEDS ORDERED: TAMSULOSIN 0.4 MG CAP.SR.24H PO SCH (22:00)
--- NOTE | 2020-04-18 23:22 | NUR ---
RN NOTES [id number] CALLED [facility] TO LET THEM KNOW PATIENT IS ON HIS WAY
--- NOTE | 2020-04-18 23:26 | NUR ---
INITIAL ASSESSMENT UNCHANGED PT AOX4, ABLE TO [place], RESPIRATIONS EVEN AND UNLABORED. NO C/O SOB OR DYSPNEA. NO S/S OF ACUTE DISTRESS. DENIES PAIN AND DISCOMFORT. SAFETY MAINTAINED. PERSONAL BELONGINGS SHEET SIGNED. PT STABLE AT THIS TIME. PT D/LEON TO [facility] ACCOM[facility]AN[facility] BY [facility].
[2020-04-19] MEDS ORDERED: AMLODIPINE BESYLATE 10 MG TABLET PO SCH (09:00)
== END 2020-04-18 23:22 | DRG 871 ==
LOC: ER 19:41 → TELE1 22:18 → MEDSG1 04-14 08:26
PROVIDERS: ADMIT Internal Medicine; ATTEND Student in an Organized Health Care Education/Training Program
PROC: 05H933Z Insertion of Infusion Device into Right Brachial Vein, Percutaneous Approach (ICD-10-PCS; principal; 2020-04-16)
PROC: 30233N1 Transfusion of Nonautologous Red Blood Cells into Peripheral Vein, Percutaneous Approach (ICD-10-PCS; 2020-04-16)
DX: A41.9 Sepsis, unspecified organism (principal); N17.0 Acute kidney failure with tubular necrosis; E43 Unspecified severe protein-calorie malnutrition; E87.1 Hypo-osmolality and hyponatremia; L03.116 Cellulitis of left lower limb; L03.115 Cellulitis of right lower limb; Z68.41 Body mass index [BMI] 40.0-44.9, adult; M62.82 Rhabdomyolysis; D50.9 Iron deficiency anemia, unspecified; E66.9 Obesity, unspecified; E78.5 Hyperlipidemia, unspecified; I13.10 Hypertensive heart and chronic kidney disease without heart failure, with stage 1 through stage 4 chronic kidney disease, or unspecified chronic kidney disease; Z20.822 Contact with and (suspected) exposure to COVID-19; N18.9 Chronic kidney disease, unspecified; N40.0 Benign prostatic hyperplasia without lower urinary tract symptoms; E11.22 Type 2 diabetes mellitus with diabetic chronic kidney disease; E86.1 Hypovolemia; K21.9 Gastro-esophageal reflux disease without esophagitis; F32.9 Major depressive disorder, single episode, unspecified; I87.2 Venous insufficiency (chronic) (peripheral); I70.0 Atherosclerosis of aorta; K40.20 Bilateral inguinal hernia, without obstruction or gangrene, not specified as recurrent
CPT/HCPCS: 36410; 36415; 71045-TC; 76705-TC; 80048-TC; 80053-TC; 80076-TC; 80202-TC; 81001; 82550-TC; 82570-TC; 82728-TC; 82962-TC; 83540-TC; 83605-TC; 83735-TC; 83970; 84100-TC; 84155; 84155-TC; 84165; 84300-TC; 84484-TC; 85025-TC; 85730-TC; 86850-TC; 87040-TC; 87086-TC; 93970-TC; 97116-TC; 97530-TC; C9803; G0378; G0480; J0610; J1815; J1940; J2185; J2543; J3370; J3475; J7030; J7040; J7050; J7060; P9016-BL; U0003